=== PATIENT | male | born 1995 | race Caucasian/White ===

== ENCOUNTER 2024-07-10 07:20 | Emergency (ER) | payer OTHER ==
[2024-07-10 07:39] VITALS: BMI 33.4
[2024-07-10] MEDS: DALBAVANCIN HCL 1,500 MG in DEXTROSE 5%-WATER - 500 ML IVPB ONE (09:14)
[2024-07-10] MEDS: ACETAMINOPHEN 325 MG TABLET (FP) PO ONE (09:14)
[2024-07-10] MEDS ORDERED: ACETAMINOPHEN 325 MG TABLET (FP) ONE (09:33)
[2024-07-10 09:54] LABS: HEMATOCRIT 40.4 % (35.4-49); HEMOGLOBIN 13.1 G/dL (11.7-16.9); MCHC 32.3 g/dl (32.0-35.9); MEAN CELL VOLUME 89.8 fl (80-96); MEAN PLT VOLUME 8.5 fl (7.5-11.1); PLATELET COUNT 382.3 10^3/uL (134-434); RDW 14.1 % (11.9-15.9); WHITE BLOOD COUNT 19.9 10^3/uL (4.0-10.8)
[2024-07-10 10:17] LABS: ALBUMIN 4.1 g/dl (3.4-5.0); ALK PHOS 73 U/L (45-117); ANION GAP 9 mmol/L (4-13); BILIRUBIN,TOTAL 0.7 mg/dl (0.2-1); CALCIUM 8.6 mg/dl (8.5-10.1); CHLORIDE 104 mmol/L (98-107); CO2 25 mmol/L (21-32); CREATININE 0.9 mg/dl (0.6-1.3); GLUCOSE,RANDOM 119 mg/dl (74-106); POTASSIUM 3.9 mmol/L (3.5-5.1); SGOT/AST 29 U/L (15-37); SGPT/ALT 25 U/L (7-52); SODIUM 138 mmol/L (136-145); TOT PROT 7.2 g/dl (6.4-8.2)
[2024-07-10 11:12] LABS: PLATELET ESTIMATE ADEQUATE
[2024-07-10 12:58] VITALS: RESP 18
[2024-07-10] MEDS: LACTATED RINGERS SOLUTION 1,000 ML/1,000 ML INFUS.BAG IV STA (13:15)
[2024-07-10 14:23] VITALS: BP 104/62; PULSE 89; TEMP 98.6
== END 2024-07-10 14:43 | disposition home or self-care (01) ==
LOC: FER 07:20
PROC: 3E03329 Introduction of Other Anti-infective into Peripheral Vein, Percutaneous Approach (ICD-10-PCS; principal; 2024-07-10)
PROC: 3E0337Z Introduction of Electrolytic and Water Balance Substance into Peripheral Vein, Percutaneous Approach (ICD-10-PCS; 2024-07-10)
DX: L03.116 Cellulitis of left lower limb (principal); R50.9 Fever, unspecified; R11.10 Vomiting, unspecified; M79.662 Pain in left lower leg
CPT/HCPCS: 36415; 80053; 85025; 93971-TC; 99284-25; J0875